=== PATIENT | female | born 1955 | race Hispanic/Latino ===

== ENCOUNTER → 2017-10-14 | Day surgery (SDC) | payer OTHER, BC ==
[~2017-10-14] MED LIST: ASPIR 8181 MG PO; BIOTIN PO; CALCIUM MAG PO; ENALAPRIL MALEA20 MG PO; FENTANYL CITRATE/PF 100MCG/2 ML INJ ONE; FISH OIL 1,2001 EACH PO; GLYBURIDE-METF1 EAC1 PO; HYOSCYAMINE SULFATE 0.5 MG/ML AMP ONE; JANUVIA100 MG PO; KERATIN PO; LOVASTATIN40 MG PO; MIDAZOLAM HCL 2 MG/2 ML VIAL ONE; MORINGA PO; MULTIVITAMINS1 EAC7 PO; PROBIO SLIM PO; PROPOFOL IV EMULSION 10 MG/ML 20 ML VIAL ONE; VITAMIN D35000 UNIT PO; ZINC PO
--- NOTE | 2017-10-14 16:02 | Operative Report ---
DATE OF PROCEDURE: October 14, 2017 REFERRING PHYSICIAN: Dr. Amanda Hwang. PROCEDURES PERFORMED 1. Esophagogastroduodenoscopy with esophageal dilatation and biopsies. 2. Colonoscopy with polypectomy. INDICATIONS FOR ESOPHAGOGASTRODUODENOSCOPY: Dysphagia/odynophagia. INDICATIONS FOR COLONOSCOPY: Colorectal cancer screening. MEDICATION: Patient was done under MAC. Please see anesthesiologist's note. PROCEDURE: With patient in left lateral decubitus position, flexible fiberoptic Olympus gastroscope was introduced into the esophagus under direct visualization without any difficulty. There was some patchy erythema noted in the distal esophagus. A focal nodularity was noted at the GE junction that was biopsied. There was a mild stricture noted to the GE junction that was dilated to size 52-[place] Durán. The scope was then advanced with ease into the stomach, traversing a small sliding hiatal hernia. The mucosa overlying the antrum and the body revealed some patchy erythema and low-grade to moderate edema and biopsies were obtained and sent to stain for H. pylori. The pylorus was of normal contour and shape. It was intubated with ease and the scope was advanced all the way to the 2nd portion of the duodenum. The scope was then withdrawn slowly. Mucosa overlying the proximal 2nd portion revealed some patchy areas of erythema. The duodenum grossly appeared to be within normal limits. The scope was then withdrawn back into the stomach and retroflexion of the mucosa overlying the fundus and the cardia appeared to be within normal limits. The scope was then straightened out. The stomach was decompressed. The scope was subsequently withdrawn. Patient tolerated the procedure well. IMPRESSION 1. Distal esophagitis. 2. Focal nodularity, gastroesophageal junction, biopsied. 3. Gastroesophageal junction stricture, dilated to size 52-[place] Durán. 4. Small sliding hiatal hernia. 5. Gastritis, biopsied. Biopsies sent to stain for Helicobacter pylori. PLAN: Follow up histology. Initiate Protonix 40 mg 1 p.o. q.a.m. a.c. Patient was then turned around and after adequate lubrication of the anal canal, flexible fiberoptic Olympus colonoscope was inserted into the rectum with ease and advanced all the way to the cecum. The scope was then withdrawn slowly. Mucosa overlying the cecum, ascending colon, transverse colon appeared to be within normal limits. Diverticular disease was noted in the sigmoid colon and 1 polyp was snared, 1 polyp was hot biopsied from the sigmoid colon. Seven polyps were snared, 1 polyp was hot biopsied from the rectum. The scope was then retroflexed into the distal rectum and small internal hemorrhoids were noted, none of which was actively bleeding. The scope was then straightened out. The rectosigmoid area, as well as the distal rectal area were decompressed. The scope was subsequently withdrawn. Patient tolerated the procedure well. IMPRESSION 1. Diverticulosis. 2. Sigmoid colon polyps x2, one snared and one hot biopsied. 3. Rectal polyps x8, seven snared and one hot biopsied. 4. Internal hemorrhoids, none actively bleeding. PLAN: Follow up histology. Initiate high-fiber, low-fat diet. Initiate high-fiber supplement. A total of 10 polyps was removed. The patient will probably benefit from a followup colonoscopy in 1 year. Job#: [id number] [place] cc:AMANDA HWANG MD
== END | disposition home or self-care (01) ==
LOC: OR 12:35
PROVIDERS: ATTEND Internal Medicine Gastroenterology
DX: Z12.11 Encounter for screening for malignant neoplasm of colon (principal); K29.70 Gastritis, unspecified, without bleeding; K22.2 Esophageal obstruction; K20.9 Esophagitis, unspecified; K22.8 Other specified diseases of esophagus; K44.9 Diaphragmatic hernia without obstruction or gangrene; K63.5 Polyp of colon; K62.1 Rectal polyp; K57.30 Diverticulosis of large intestine without perforation or abscess without bleeding; K64.8 Other hemorrhoids; I10 Essential (primary) hypertension; E11.9 Type 2 diabetes mellitus without complications; Z01.810 Encounter for preprocedural cardiovascular examination; Z79.82 Long term (current) use of aspirin; Z68.26 Body mass index [BMI] 26.0-26.9, adult; Z83.79 Family history of other diseases of the digestive system
CPT/HCPCS: 36415; 43239; 43450; 45384; 45385; 82948; 93005; J1980; J2250

== ENCOUNTER 2018-06-03 11:17 | Inpatient (IN) | payer OTHER ==
[~2018-06-03] VITALS: Ht 152.4 cm; Wt 62.7 kg
[~2018-06-03 11:17] MED LIST changes: -FENTANYL CITRATE/PF 100MCG/2 ML INJ ONE; -HYOSCYAMINE SULFATE 0.5 MG/ML AMP ONE; -MIDAZOLAM HCL 2 MG/2 ML VIAL ONE; -PROPOFOL IV EMULSION 10 MG/ML 20 ML VIAL ONE
[2018-06-03] MEDS ORDERED: DIATRIZOATE MEGL/DIATRIZOA SOD 30 ML BTL PO ONE (11:47)
[2018-06-03 12:12] LABS: BASOPHILS % 0.6 % (0.0-1.0); EOSINOPHILS % 0.3 % (0.0-6.0); HEMATOCRIT 41.4 % (34.2-44.1); HEMOGLOBIN 13.8 g/dL (12.0-16.0); LYMPHOCYTES # (AUTO) 1.2 (1.0-3.2); LYMPHOCYTES % 18.6 % (18.0-39.1); MEAN CORPUSCULAR HEMOGLOBIN 28.7 pg (28-32); MEAN CORPUSCULAR HGB CONC 33.3 g/dL (31-35); MEAN CORPUSCULAR VOLUME 86.1 fL (81-99); MONOCYTES # (AUTO) 0.5 (0.2-0.8); MONOCYTES % 7.7 % (4.4-11.3); NEUTROPHILS # (AUTO) 4.5 (2.1-6.9); NEUTROPHILS % 72.5 % (38.7-80.0); PLATELET COUNT 293 x10e3/uL (140-360); RED BLOOD COUNT 4.81 x10e6/uL (3.6-5.1); RED CELL DISTRIBUTION WIDTH 12.9 % (11.7-14.4)
[2018-06-03 12:26] LABS: INR 0.9; PARTIAL THROMBOPLASTIN TIME 23.9 seconds (23.8-35.5)
[2018-06-03 12:33] LABS: ALBUMIN/GLOBULIN RATIO 1.1 (0.8-2.0); CALCIUM 10.3 mg/dL (8.4-10.2); CREATININE, SERUM 1.02 mg/dL (0.57-1.11); MAGNESIUM 2.1 MG/DL (1.3-2.1)
[2018-06-03 12:44] LABS: CLARITY,URINE CLEAR (CLEAR); COLOR,URINE YELLOW (YELLOW)
[2018-06-03 12:45] LABS: BACTERIA,URINE FEW /HPF; BILIRUBIN,URINE NEGATIVE (NEGATIVE); KETONES,URINE NEGATIVE (NEGATIVE); LEUKOCYTE ESTERASE ,URINE NEGATIVE (NEGATIVE); NITRITE,URINE NEGATIVE (NEGATIVE); PROTEIN,URINE DIPSTICK NEGATIVE (NEGATIVE); RBC,URINE 0-5 /HPF (0-5); URINE UROBILINOGEN 0.2 mg/dL (0.2 - 1); WBC,URINE (MAN) 0-5 /HPF (0-5)
[2018-06-03] MEDS ORDERED: SODIUM CHLORIDE 0.9% 1000ML 1,000 ML IV SCH (13:00)
--- NOTE | 2018-06-03 14:50 | Diagnostic Imaging Report ---
EXAMINATION: CT of the abdomen and pelvis with contrast. TECHNIQUE: Spiral CT images of the abdomen and pelvis were performed from the lung bases to the lesser trochanters after the intravenous administration of 100 cc of Isovue-370 and the oral administration of Gastrografin. Coronal and sagittal reformatted images were obtained. COMPARISON: None. CLINICAL HISTORY:Lower abdominal pain, diarrhea, prior history of diverticulitis DISCUSSION: ABDOMEN/PELVIS: LOWER THORAX:Unremarkable. HEPATOBILIARY: Hepatic parenchyma is diffusely hypoattenuating compatible with steatosis. No focal hepatic lesion or intrahepatic biliary ductal dilatation. The gallbladder has been removed. SPLEEN: No splenomegaly. PANCREAS: Incidental note of pancreas divisum. Mild prominence of the common bile duct likely related to reservoir effect. No pancreatic mass or pancreatic ductal dilatation. ADRENALS: No adrenal nodules. KIDNEYS/URETERS: No hydronephrosis, stones, or solid mass lesions. PELVIC ORGANS/BLADDER: The urinary bladder is incompletely distended but otherwise unremarkable. The uterus is not identified in keeping with hysterectomy. No adnexal mass. PERITONEUM/RETROPERITONEUM: No ascites. No pneumoperitoneum. LYMPH NODES: No pelvic sidewall, retroperitoneal, or mesenteric lymphadenopathy. VESSELS: Atherosclerotic calcification of the abdominal aorta, major branch vessels, and iliac arterial systems without aneurysmal dilatation or significant stenosis. Portal vein, splenic vein, and central superior mesenteric vein are patent. GI TRACT: There is concentric wall thickening of the colon extending from the cecum to the rectum with mild adjacent inflammatory change. The stomach is collapsed with prominence of the rugal folds. Scattered sigmoid diverticula. No small bowel dilatation to suggest obstruction. BONES AND SOFT TISSUE: No osseous destructive lesion. Degenerative disc changes of the lower thoracic and lumbar spine. No focal soft tissue abnormalities. IMPRESSION: Findings compatible with infectious or inflammatory pancolitis, without trupti perforation or drainable fluid collection. Hepatic steatosis. Signed by: Dr. Shon Avendaño M.D. on 06/03/2018 2:46 PM
[2018-06-03] MEDS: PIPER-TAZ 3.375 GM 50 ML IV SCH ×2 (16:16→22:50)
[2018-06-03] MEDS ORDERED: MORPHINE SULFATE 2 MG/ML SYR IV PRN (16:45)
[2018-06-03] MEDS ORDERED: DEXTROSE 50% SYRINGE 50 ML IV PRN (16:45)
[2018-06-03] MEDS ORDERED: PANTOPRAZOLE 40 MG 10ML VIAL IV ONE (16:50)
--- OUTSIDE RECORDS SUMMARY | 2018-06-03 16:51 | XMS REPORT ---
[facility] Address Unknown Phone Unavailable Care Team Providers Care Well Puller Head Name Role Phone Caprice BRAY Unavailable Unavailable Problems This patient has no known problems. Allergies, Adverse Reactions, Alerts This patient has no known allergies or adverse reactions. Medications This patient has no known medications. Results Test Description Test Time Test Comments Text Results Atomic Results Result Comments CT ABDOMEN/PELVIS W 2018-06-03 14:38:00 [place] [address] Patient Name: HEAVEN SIMPSON MR #: [id number] : 1955 Age/Sex: 63/F Req #: [id number] [facility] Physician: Ordered by: KISHA RAHMAN COAT CUTTER Report #: [id number] Location: ER Room/Bed: Procedure: [id number] CT/CT ABDOMEN/PELVIS W Exam Date: 06/03/18 Exam Time: 1410 REPORT STATUS: Signed EXAMINATION: CT of the abdomen and pelvis with contras t. TECHNIQUE: Spiral CT images of the abdomen and pelvis were performed from the lung bases to the lesser trochanters after the intravenous administration of 100 cc of Isovue-370 and the oral administration of Gastrografin. Coronal and sagittal reformatted images were obtained. COMPARISON: None. CLINICAL HISTORY:Lower abdominal pain, diarrhea, prior history of diverticulitis DISCUSSION: ABDOMEN/PELVIS: LOWER THORAX:Unremarkable. HEPATOBILIARY: Hepatic parenchyma is diffusely hypoattenuating compatible with steatosis. No focal hepatic lesion or i ntrahepatic biliary ductal dilatation. The gallbladder has been removed. SPLEEN: No splenomegaly. PANCREAS: Incidental note of pancreas divisum. Mild prominence of the common bile duct likely related to reservoir effect. No pancreatic mass or pancreatic ductal dilatation. ADRENALS: No adrenal nodules. KIDNEYS/URETERS: No hydronephrosis, stones, or solid mass lesions. PELVIC ORGANS/BLADDER: The urinary bladder is incompletely distended but otherwise unremarkable. The uterus is not identified in keeping with hysterectomy. No adnexal mass. PERITONEUM/RETROPERITONEUM: No ascites. No pneumoperitoneum. LYMPH NODES: No pelvic sidewall, retroperitoneal, or mesenteric lymphadenopathy. VESSELS: Atherosclerotic calcification of the abdominal aorta, major branch vessels, and iliac arterial systems without aneurysmal dilatation or significant stenosis. Portal vein, splenic vein, and central superior mesenteric vein are patent. GI TRACT: There is concentric wall thickening of the colon extending from the cecum to the rectum with mild adjacent inflammatory change. The stomach is collapsed with prominence of the rugal folds. Scattered sigmoid diverticula. No small bowel dilatation to suggest obstruction. BONES AND SOFT TISSUE: No osseous destructive lesion. Degenerative disc changes of the lower thoracic and lumbar spine. No focal soft tissue abnormalities. IMPRESSION: Findings compatible with infectious or inflammatory pancolitis, without trupti perforation or drainable fluid collection. Hepatic steatosis. Signed by: Dr. Negra Liriano M.D. on 06/03/2018 2:46 PM Dictated By: NEGRA LIRIANO MD [id number] Transcribed By: JOSE ANGEL on 06/03/18 1446 COPY TO: KISHA RAHMAN NP
[2018-06-03] MEDS: METRONIDAZOLE 500MG/NS 100ML 100 ML IV SCH (17:08)
[2018-06-03] MEDS: SODIUM CHLORIDE 0.9% 1000ML 1,000 ML IV SCH (17:08)
[2018-06-03] MEDS ORDERED: SODIUM CHLORIDE 0.9% 50ML 50 ML ONE (17:38)
[2018-06-03] MEDS ORDERED: IOPAMIDOL 370 MG/ML 200 ML INFUS..BTL INJ ONE (17:38)
[2018-06-03 20:10] VITALS: BP 128/62
[2018-06-03 20:30] VITALS: BP 128/62
[2018-06-03 21:00] VITALS: BP 128/62
[2018-06-03] MEDS: INSULIN REGULAR, HUMAN 100 UNIT/1 ML 3ML VIAL SQ SCH (21:00)
[2018-06-03] MEDS: MORPHINE SULFATE INJ 4 MG/ML INJ IV PRN (23:00)
[2018-06-04] VITALS (7 sets, daily range): BP systolic 106–143; BP diastolic 55–66
[2018-06-04] MEDS: SODIUM CHLORIDE 0.9% 1000ML 1,000 ML IV SCH ×4 (01:30→22:30)
[2018-06-04] MEDS: PIPER-TAZ 3.375 GM 50 ML IV SCH ×4 (04:08→22:30)
[2018-06-04] MEDS: METRONIDAZOLE 500MG/NS 100ML 100 ML IV SCH ×4 (06:20→18:20)
[2018-06-04] MEDS: DICYCLOMINE HCL 10 MG CAP PO SCH ×3 (09:20→20:22)
[2018-06-04] MEDS: INSULIN REGULAR, HUMAN 100 UNIT/1 ML 3ML VIAL SQ SCH ×4 (09:20→20:22)
[2018-06-04] MEDS: PANTOPRAZOLE 40 MG 10ML VIAL IV SCH (09:20)
--- NOTE | 2018-06-04 09:21 | History and Physical ---
Ms. Khanna is a 63-year-old female with a history of hypertension, diabetes, reflux, hyperlipidemia, who started 4 days ago with lower abdominal pain and diarrhea. She decided to come to the emergency room yesterday. PAST MEDICAL HISTORY: She has diabetes, hypertension and hyperlipidemia. SOCIAL HISTORY: She does not smoke. She does not drink. ALLERGIES: NO KNOWN DRUG ALLERGIES. PAST SURGICAL HISTORY: She had cholecystectomy, hysterectomy and appendectomy. PHYSICAL EXAMINATION GENERAL: Today, she is awake and alert. VITALS: Temperature is 97.9, blood pressure is 143/65. HEART: Regular rate. LUNGS: Clear to auscultation. ABDOMEN: Distended and soft. EXTREMITIES: Lower extremities with no edema or erythema. BLOOD WORK: White count is 6.22, hemoglobin 13.8, hematocrit 41.4. Potassium is 4, creatinine 1.02. Glucose on admission was 319 and today is 209. Stool is pending. C. diff is pending. She had an abdominal and pelvic CT done that shows findings compatible with infectious or inflammatory pancolitis without perforation. ASSESSMENT AND PLAN 1. Lower abdominal pain and diarrhea. 2. Pancolitis. 3. Diabetes with hyperglycemia. 4. Hypertension. 5. Hyperlipidemia. 6. Reflux. PLAN: At the present time, is to start a clear liquid diet. Continue IV Flagyl and Zosyn. Continue to monitor for fever and white count. We are awaiting stool cultures. All of this was discussed with the patient. All questions were answered to satisfaction. Job#: [id number] SUE
[2018-06-04 10:01] LABS: C DIFFICILE TOXIN A&B AMP PROB NEGATIVE (NEGATIVE)
[2018-06-04 10:20] LABS: WBC,FECAL (FECAL LACTOFERRIN) POSITIVE (NEGATIVE)
[2018-06-04] MEDS: ONDANSETRON HCL INJ 2 MG/ML VIAL IV PRN ×2 (12:50→20:22)
[2018-06-04] MEDS: MORPHINE SULFATE INJ 4 MG/ML INJ IV PRN ×2 (12:50→20:22)
[2018-06-05] VITALS (8 sets, daily range): BP systolic 111–135; BP diastolic 55–68
[2018-06-05] MEDS: METRONIDAZOLE 500MG/NS 100ML 100 ML IV SCH ×4 (00:18→17:02)
[2018-06-05] MEDS: PIPER-TAZ 3.375 GM 50 ML IV SCH ×4 (04:19→21:40)
[2018-06-05] MEDS: INSULIN REGULAR, HUMAN 100 UNIT/1 ML 3ML VIAL SQ SCH ×4 (07:30→21:00)
[2018-06-05] MEDS: DICYCLOMINE HCL 10 MG CAP PO SCH ×3 (08:28→21:39)
[2018-06-05] MEDS: PANTOPRAZOLE 40 MG 10ML VIAL IV SCH (08:28)
[2018-06-05] MEDS: SODIUM CHLORIDE 0.9% 1000ML 1,000 ML IV SCH ×3 (08:28→21:42)
--- NOTE | 2018-06-05 09:03 | Progress Note ---
DATE: June 05, 2018 Ms. Khanna is a 63-year-old female with a history of diabetes, hypertension, hyperlipidemia, and reflux. She started 4 days ago with low abdominal pain and diarrhea. She was found to have pancolitis and was started on IV antibiotics. PHYSICAL EXAMINATION GENERAL: Today, she is awake and alert. She is feeling better. She still has some diarrhea. VITALS: Temperature is 96. Blood pressure 125/62. HEART: Regular rate. LUNGS: Clear to auscultation. ABDOMEN: Soft. BLOOD WORK: White count is 6.22. Sugar 135. Stool for lactoferrin came back positive. C. diff negative. Stool for O and P is pending. Urine culture is negative. Abdominal and pelvic CT shows pancolitis. ASSESSMENT AND PLAN 1. Low abdominal pain and diarrhea. 2. Pancolitis. 3. Diabetes with hyperglycemia. 4. Hypertension. 5. Hyperlipidemia. 6. Reflux. PLAN: At the present time, continue IV antibiotics. Advance diet as tolerated. C. diff came back negative. GI is following the patient with me. Once she is stable and she can tolerate a diet, she is going to be able to go home. All of this was discussed with the patient, and questions were answered to satisfaction. Job#: [id number]
[2018-06-05] MEDS: ONDANSETRON HCL INJ 2 MG/ML VIAL IV PRN ×2 (15:20→21:50)
[2018-06-05] MEDS: MORPHINE SULFATE INJ 4 MG/ML INJ IV PRN (15:20)
[2018-06-06] VITALS (7 sets, daily range): BP systolic 133–150; BP diastolic 55–94
[2018-06-06] MEDS: METRONIDAZOLE 500MG/NS 100ML 100 ML IV SCH ×4 (00:56→17:23)
[2018-06-06] MEDS: PIPER-TAZ 3.375 GM 50 ML IV SCH ×4 (05:14→21:51)
[2018-06-06] MEDS: ONDANSETRON HCL INJ 2 MG/ML VIAL IV PRN ×2 (07:09→17:24)
[2018-06-06 07:18] LABS: ALANINE AMINOTRANSFERASE 95 IU/L (0-55); ALKALINE PHOSPHATASE 80 IU/L (40-150); ANION GAP 12.8 mmol/L (8-16); BLOOD UREA NITROGEN 5 mg/dL (7-26); BUN/CREATININE RATIO 7 (6-25); CALCIUM 9.1 mg/dL (8.4-10.2); CARBON DIOXIDE 21 mmol/L (22-29); CHLORIDE 108 mmol/L (98-107); CREATININE, SERUM 0.75 mg/dL (0.57-1.11); EST GLOMERULAR FILTRATION RATE > 60 ML/MIN (60-); GLUCOSE 154 mg/dL (74-118); POTASSIUM 3.8 mmol/L (3.5-5.1); SODIUM 138 mmol/L (136-145)
[2018-06-06] MEDS: INSULIN REGULAR, HUMAN 100 UNIT/1 ML 3ML VIAL SQ SCH ×4 (07:30→20:16)
[2018-06-06] MEDS: PANTOPRAZOLE 40 MG 10ML VIAL IV SCH (08:54)
[2018-06-06] MEDS: DICYCLOMINE HCL 10 MG CAP PO SCH ×3 (08:54→20:20)
[2018-06-06] MEDS: SODIUM CHLORIDE 0.9% 1000ML 1,000 ML IV SCH ×2 (08:54→16:17)
[2018-06-06] MEDS: MORPHINE SULFATE INJ 4 MG/ML INJ IV PRN (17:24)
[2018-06-07] VITALS: BP 134/55
[2018-06-07] MEDS: METRONIDAZOLE 500MG/NS 100ML 100 ML IV SCH ×3 (00:45→11:36)
[2018-06-07] MEDS: SODIUM CHLORIDE 0.9% 1000ML 1,000 ML IV SCH ×2 (00:45→08:39)
[2018-06-07 04:00] VITALS: BP 135/91
[2018-06-07] MEDS: PIPER-TAZ 3.375 GM 50 ML IV SCH ×2 (04:16→10:19)
[2018-06-07 07:47] VITALS: BP 158/56
[2018-06-07 08:11] VITALS: BP 158/56
[2018-06-07] MEDS: PANTOPRAZOLE 40 MG 10ML VIAL IV SCH (08:39)
[2018-06-07] MEDS: DICYCLOMINE HCL 10 MG CAP PO SCH (08:39)
[2018-06-07] MEDS: INSULIN REGULAR, HUMAN 100 UNIT/1 ML 3ML VIAL SQ SCH ×2 (08:58→12:28)
[2018-06-07 12:23] VITALS: BP 146/79
--- NOTE | 2018-07-31 16:55 | Discharge Summary ---
HOSPITAL COURSE: Ms. Khanna is a 63-year-old female with history of diabetes, hypertension, hyperlipidemia and reflux. Came to the emergency room complaining of abdominal pain and diarrhea. She was found to have pancolitis. She was started on IV antibiotics. Dr. Cody Whelan was covering for me during the weekend, and she was discharged home on June 07. She was tolerating the diet. PHYSICAL EXAM: VITAL SIGNS: Temperature was 96.4, blood pressure 158/56. HEART: Regular rate. LUNGS: Clear to auscultation. ABDOMEN: Soft. BLOOD WORK: Potassium 3.8, creatinine 0.75, glucose 154. White count 6.22, hemoglobin 13.8, hematocrit 41.4. DISCHARGE DIAGNOSES: 1. Lower abdominal pain and diarrhea. 2. Pancolitis. 3. Diabetes with hyperglycemia. 4. Hypertension. 5. Hyperlipidemia. 6. Reflux. Like I said before, patient was discharged home on June [address] Cody Whelan that was covering for me. GI was okay to discharge her and to follow up with him. Please see home medication reconciliation list. She was to call me or come back to the emergency room if any recurrent problem. Job#: [id number] EV
== END 2018-06-07 13:06 | disposition home or self-care (01) | DRG 387 ==
LOC: ER 11:17 → ERHOLD 16:35 → MED/SURG2 20:09
PROVIDERS: ADMIT Internal Medicine; ATTEND Internal Medicine
DX: K51.00 Ulcerative (chronic) pancolitis without complications (principal); K21.9 Gastro-esophageal reflux disease without esophagitis; E78.5 Hyperlipidemia, unspecified; I10 Essential (primary) hypertension; E11.65 Type 2 diabetes mellitus with hyperglycemia; Z79.4 Long term (current) use of insulin
CPT/HCPCS: 36415; 74177; 80053; 81001; 82150; 82948; 83605; 83630; 83690; 83735; 85025; 85610; 85730; 87045; 87086; 87177; 87493; 99284; J2270; J2405; J2543; J7030; Q9967

== ENCOUNTER → 2020-04-03 | Outpatient (CLI) | payer OTHER ==
--- NOTE | 2020-04-03 14:10 | Diagnostic Imaging Report ---
EXAM: US LIVER DATE: 04/03/2020 12:51 PM INDICATION: ^[id number] ^[id number] ^ELEVATED LIVER ENZYMES COMPARISON: CT dated 06/03/2018 TECHNIQUE: Transverse and longitudinal richardson scale and color doppler sonographic images of the right upper quadrant were obtained. FINDINGS: LIVER 15 cm in the right midclavicular line. Liver is diffusely echogenic with with normal contour, no masses. GALLBLADDER Surgically absent BILE DUCTS No intra nor extra-hepatic biliary dilation. Common bile duct measures 0.35cm PANCREAS: Visualized portions are normal. RIGHT KIDNEY: 10.1 cm Echogenicity: Normal Collecting System: No hydronephrosis Stones: None Cyst/Mass: None VESSELS: Aorta: Visualized portions are within normal size limits Inferior Vena Cava: Visualized portions are normal Main Portal Vein: 0.9 cm, normal size with hepatopetal flow. FREE FLUID: None IMPRESSION: 1. Hepatic steatosis. 2. Postsurgical changes from cholecystectomy. Negative for biliary dilatation. Signed by: Raul Gr MD on 04/03/2020 2:07 PM
== END ==
LOC: US 12:22
PROVIDERS: ATTEND Internal Medicine Gastroenterology
DX: R74.8 Abnormal levels of other serum enzymes (principal)
CPT/HCPCS: 76705

== ENCOUNTER → 2021-04-10 | Outpatient (CLI) | payer OTHER | LOC: RAD 08:28 | PROVIDERS: ATTEND Internal Medicine | DX: M25.511 Pain in right shoulder (principal) ==

== ENCOUNTER 2022-01-06 10:53 | Emergency (ER) | payer MEDICARE, OTHER ==
[~2022-01-06] VITALS: Ht 304.8 cm; Wt 62.6 kg
== END 2022-01-06 11:51 | disposition home or self-care (01) ==
LOC: ER 11:26
DX: M25.551 Pain in right hip (principal); M79.651 Pain in right thigh; M62.838 Other muscle spasm; I10 Essential (primary) hypertension; E11.9 Type 2 diabetes mellitus without complications; E78.5 Hyperlipidemia, unspecified; K21.9 Gastro-esophageal reflux disease without esophagitis
CPT/HCPCS: 99283

== ENCOUNTER → 2022-03-15 | Outpatient (CLI) | payer MEDICARE | LOC: DX 08:03 | PROVIDERS: ATTEND Family Medicine | DX: M81.8 Other osteoporosis without current pathological fracture (principal); Z78.0 Asymptomatic menopausal state; R74.8 Abnormal levels of other serum enzymes | CPT/HCPCS: 76705; 77080 ==

== ENCOUNTER → 2022-12-04 | Outpatient (CLI) | payer MEDICARE | LOC: US 14:39 | PROVIDERS: ATTEND Family Medicine | DX: N18.31 Chronic kidney disease, stage 3a (principal) | CPT/HCPCS: 76770 ==

== ENCOUNTER → 2023-05-20 | Outpatient (REF) | payer MEDICARE | LOC: RAD 10:52 | PROVIDERS: ATTEND Family Medicine | DX: M79.605 Pain in left leg (principal) ==

== ENCOUNTER → 2025-01-13 | Day surgery (SDC) | payer MEDICARE ==
[2025-01-05 13:19] LABS: BASOPHILS % 0.9 % (0.0-1.0); EOSINOPHILS # (AUTO) 0.2 (0.0-0.4); EOSINOPHILS % 3.5 % (0.0-6.0); HEMATOCRIT 31.6 % (34.2-44.1); HEMOGLOBIN 10.2 g/dL (12.0-16.0); LYMPHOCYTES # (AUTO) 1.1 (1.0-3.2); MEAN CORPUSCULAR HEMOGLOBIN 27.5 pg (28-32); MEAN CORPUSCULAR HGB CONC 32.3 g/dL (31-35); MEAN CORPUSCULAR VOLUME 85.2 fL (81-99); MONOCYTES # (AUTO) 0.3 (0.2-0.8); NEUTROPHILS # (AUTO) 2.7 (2.1-6.9); NEUTROPHILS % 63.4 % (38.7-80.0); PLATELET COUNT 295 x10e3/uL (140-360); RED BLOOD COUNT 3.71 x10e6/uL (3.6-5.1); RED CELL DISTRIBUTION WIDTH 14.2 % (11.7-14.4); WHITE BLOOD COUNT 4.31 x10e3/uL (4.8-10.8)
[~2025-01-13] MED LIST changes: +ALENDRONATE SOD70 MG PO; +BIOTIN PLUS 5,1 EACH PO; +CRESTOR10 MG PO; +FAMOTIDINE20 MG PO; +GLIPIZIDE ER5 MG PO; +JANUMET 50-1,01 EACH; +LIDOCAINE HCL 2% LOCAL INJ 5 ML SDV VIAL INJ ONE; +METFORMIN HCL500 M2 PO; +PANTOPRAZOLE SO40 MG PO; +PROPOFOL IV EMULSION 10 MG/ML 20 ML VIAL ONE; +TRULICITY3 MG/0.5 M INJ; +VITAMIN B122500 MCG PO; +VITAMIN D31 ML; +VITAMIN E400 UNI1 PO
[2025-01-13] MEDS: LACTATED RINGER'S 1,000 ML ONE (06:36)
[2025-01-13 07:34] VITALS: TEMP 97.5
[2025-01-13 07:50] VITALS: BP 110/70; PULSE 80; RESP 16; O2SAT 98
== END | disposition home or self-care (01) ==
LOC: OR 06:02
PROVIDERS: ATTEND Internal Medicine Gastroenterology
DX: K21.9 Gastro-esophageal reflux disease without esophagitis (principal); K29.50 Unspecified chronic gastritis without bleeding; K44.9 Diaphragmatic hernia without obstruction or gangrene; K31.89 Other diseases of stomach and duodenum; I10 Essential (primary) hypertension; E11.9 Type 2 diabetes mellitus without complications; Z79.85 Long-term (current) use of injectable non-insulin antidiabetic drugs; Z79.84 Long term (current) use of oral hypoglycemic drugs; E78.00 Pure hypercholesterolemia, unspecified; K51.90 Ulcerative colitis, unspecified, without complications; Z71.3 Dietary counseling and surveillance; Z68.23 Body mass index [BMI] 23.0-23.9, adult; Z01.812 Encounter for preprocedural laboratory examination; Z01.810 Encounter for preprocedural cardiovascular examination; Z79.899 Other long term (current) drug therapy; Z79.82 Long term (current) use of aspirin
CPT/HCPCS: 36415; 43239; 82948; 85025; 88305; 88342; 93005; J2003

== ENCOUNTER → 2025-03-18 | Outpatient (REF) | payer MEDICARE ==
[~2025-03-18] MED LIST changes: -LIDOCAINE HCL 2% LOCAL INJ 5 ML SDV VIAL INJ ONE; -PROPOFOL IV EMULSION 10 MG/ML 20 ML VIAL ONE
== END ==
LOC: RAD 13:27
PROVIDERS: ATTEND Specialist/Technologist, Other Surgical Technologist
DX: M79.671 Pain in right foot (principal); M79.672 Pain in left foot